=== PATIENT | male | born 2000 | race African-American/Black ===

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

== ENCOUNTER 2019-03-11 20:01 | Emergency (ER) | payer OTHER ==
[2019-03-11] MEDS ORDERED: Lidocaine 1% w/Epinephrine 1:100K 20 ML VIAL ONE (20:28)
[2019-03-11] MEDS ORDERED: Sodium Chloride Irrig Solution 250 ML ONE (20:32)
[2019-03-11] MEDS ORDERED: Adacel (T-DAP) 0.5 ML SYRINGE ONE (20:32)
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
== END 2019-03-11 21:22 | disposition home or self-care (01) ==
LOC: MADERS 20:01 → EEVIPCON 20:01 → MADERS 21:22
DX: S01.81XA Laceration without foreign body of other part of head, initial encounter (principal); Z23 Encounter for immunization; Y04.8XXA Assault by other bodily force, initial encounter
CPT/HCPCS: 12011; 70450; 72125; 90471; 90715; J2001

== ENCOUNTER 2019-07-01 02:17 | Emergency (ER) | payer OTHER ==
[2019-07-01] MEDS ORDERED: Ondansetron PF 4 MG/2 ML Vial ONE (02:53)
[2019-07-01] MEDS ORDERED: Pantoprazole 40 MG VIAL ONE (02:53)
[2019-07-01] MEDS ORDERED: Ketorolac Tromethamine 30 MG/ML VIAL ONE (02:53)
[2019-07-01 03:03] LABS: #Basophils 0.1 thou/uL (0.0-0.2); #Eosinphils 0.1 thou/uL (0.0-0.7); #Lymphocytes 1.6 thou/uL (1.20-3.40); #Monocytes 0.8 thou/uL (0.11-0.59); #Neutrophils 7.7 thou/uL (1.40-6.50); %Basophils 0.8 % (0.0-1.0); %Eosinophils 0.5 % (0.0-10.0); %Lymphocytes 15.7 % (28.0-48.0); %Monocytes 8.1 % (0.0-4.0); %Neutrophils 74.8 % (31.0-61.0); Hemoglobin 16.9 g/dL (14.0-18.0); Hypochromia SLIGHT = 6-15 cells (100X) (0-5/hpf); MDiff Complete? YES; Mean Corpuscular HGB CONC 29.7 g/dL (32.0-36.0); Mean Corpuscular Hemoglobin 26.6 pg (25.0-35.0); Mean Corpuscular Volume 89.6 fL (78.0-98.0); Mean Platelet Volume 9.1 fL (7.4-10.4); Ovalocytes SLIGHT = 2-5 cells (100X) (0-1/hpf); Platelet Count 180 thou/uL (130-400); Platelet Morphology Comment Appears Adequate; RBC Distribution Width 12.3 % (11.5-14.5); Red Blood Cell (RBC) Count 6.34 mill/uL (4.00-5.20); White Blood Cell (WBC) Count 10.3 thou/uL (4.8-10.8)
[2019-07-01 03:14] LABS: ALT (SGPT) 34 U/L (8-55); AST (SGOT) 40 U/L (5-34); Albumin 4.9 g/dL (3.5-5.0); Alcohol 11 mg/dL (Less than 10); Alkaline Phosphatase 50 U/L (50-130); Anion Gap 17 mmol/L (10-20); BUN (Urea Nitrogen) 17 mg/dL (8.9-20.6); Bilirubin, Total 1.1 mg/dL (0.2-1.2); Calc. Creatinine Clearance 0 mL/min (70-130); Calcium 9.6 mg/dL (7.8-10.44); Carbon Dioxide 25 mmol/L (22-29); Chloride 103 mmol/L (98-107); Estimated GFR-MDRD Greater than 90; Globulin 2.4 g/dL (2.4-3.5); Glucose 79 mg/dL (70-105); Potassium 3.7 mmol/L (3.5-5.1); Protein, Total 7.3 g/dL (6.0-8.3); Sodium 141 mmol/L (136-145)
[2019-07-01] MEDS ORDERED: Sodium Chloride 0.9% 1,000 ML ONE (03:25)
[2019-07-01 04:01] LABS: Bilirubin Negative (Negative); Blood, Urine Trace (Negative); Clarity Clear (Clear); Glucose, Urine (Dipstick) Negative (Negative); Leukocyte Trace (Negative); Nitrite Negative (Negative); Protein, Urine (Dipstick) Negative (Neg-Trace)
[2019-07-01 04:09] LABS: RBC/HPF 0-3 HPF (0-3)
[2019-07-01 04:10] LABS: Bacteria/HPF None Seen HPF (None Seen); Squamous Epithelial None Seen HPF (0-3)
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
[2019-07-01] MEDS ORDERED: Iopamidol 370 76% 100 ML VIAL ONE (13:14)
== END 2019-07-01 04:30 | disposition home or self-care (01) ==
LOC: MADERS 02:17
DX: S06.0X0A Concussion without loss of consciousness, initial encounter (principal); S01.01XA Laceration without foreign body of scalp, initial encounter; S20.211A Contusion of right front wall of thorax, initial encounter; Q61.3 Polycystic kidney, unspecified; V86.99XA Unspecified occupant of other special all-terrain or other off-road motor vehicle injured in nontraffic accident, initial encounter
CPT/HCPCS: 70450; 71260; 72125; 74177; 80053; 80307; 81003; 81015; 85025; 94760; 96360; C9113; J1885; J2405; J7050; L0120; Q9967

== ENCOUNTER 2019-12-08 22:19 | Emergency (ER) | payer OTHER ==
[2019-12-10 13:57] LABS: SARS-CoV-2 MS2 Positive; SARS-CoV-2 N Gene Positive; SARS-CoV-2 S Gene Positive; SARS-CoV-2 orf1ab Positive
== END 2019-12-08 23:30 | disposition home or self-care (01) ==
LOC: MADERS 22:19
DX: U07.1 COVID-19 (principal)
CPT/HCPCS: 87635; 87804; 99283; U0003

== ENCOUNTER 2024-07-19 14:08 | Emergency (ER) | payer BC ==
[2024-07-19] MEDS ORDERED: Methocarbamol 500 MG TAB ONE (14:55)
[2024-07-19] MEDS ORDERED: Aspirin Chewable 81 MG TAB ONE (14:56)
[2024-07-19] MEDS ORDERED: Acetaminophen 500 MG TAB ONE (14:56)
[2024-07-19 15:08] LABS: #Basophils 0.1 thou/uL (0.0-0.2); #Eosinophils 0.1 thou/uL (0.0-0.7); #Lymphocytes 1.8 thou/uL (1.20-3.40); #Monocytes 0.5 thou/uL (0.11-0.59); #Neutrophils 1.9 thou/uL (1.40-6.50); %Basophils 1.6 % (0.0-1.0); %Eosinophils 3.4 % (0.0-10.0); %Lymphocytes 40.6 % (21.0-51.0); %Monocytes 10.2 % (0.0-10.0); %Neutrophils 44.1 % (42.0-75.0); Hematocrit 55.5 % (42.0-52.0); Hemoglobin 16.7 g/dL (14.0-18.0); Hypochromia SLIGHT = 6-15 cells (100X) (0-5/hpf); MDiff Complete? YES; Mean Corpuscular Hemoglobin 26.5 pg (27.0-31.0); Mean Corpuscular Volume 88.1 fl (78.0-98.0); Mean Platelet Volume 8.7 fL (7.4-10.4); Platelet Adequacy Comment Appears Adequate; Platelet Count 202 10x3/uL (130-400); RBC Distribution Width 12.2 % (11.5-14.5); White Blood Cell (WBC) Count 4.4 10x3/uL (4.8-10.8)
[2024-07-19 15:15] LABS: ALT (SGPT) 28 U/L (Less than 45); AST (SGOT) 30 U/L (11-34); Albumin 4.4 g/dL (3.1-4.5); Alkaline Phosphatase 38 U/L (40-110); Anion Gap 14 mmol/L (10-20); BUN (Urea Nitrogen) 15 mg/dL (8.9-20.6); Bilirubin, Total 0.8 mg/dL (0.3-1.2); CK (CPK) 426 U/L (30-200); Calc. Creatinine Clearance 0 mL/min (70-130); Calcium 9.2 mg/dL (7.8-10.44); Carbon Dioxide 23 mmol/L (22-29); Chloride 106 mmol/L (98-107); Estimated GFR 88; Globulin 2.6 g/dL (2.4-3.5); Glucose 86 mg/dL (70-105); Potassium 3.9 mmol/L (3.5-5.1); Sodium 139 mmol/L (136-145)
[2024-07-19 15:16] LABS: Troponin I Less than 0.010 ng/mL (< 0.028)
== END 2024-07-19 15:34 | disposition home or self-care (01) ==
LOC: MADERS 14:08
DX: R07.89 Other chest pain (principal)
CPT/HCPCS: 36415; 71046; 80053; 82550; 83880; 84484; 85025; 93005